=== PATIENT | female | born 1975 | race African-American/Black ===

== ENCOUNTER 2021-02-22 06:33 | Emergency (ER) | payer MEDICAID, OTHER ==
[~2021-02-22] VITALS: Ht 160 cm; Wt 108.9 kg
[2021-02-22] MEDS ORDERED: FLUORESCEIN SOD OPTH TEST STRIP RIGHTEYE ONE (07:30)
[2021-02-22] MEDS ORDERED: TETRACAINE HCL 0.5% OPTH(EYE) SOLN 4ML RIGHTEYE ONE (07:30)
[2021-02-22 07:34] VITALS: BP 142/72
== END 2021-02-22 08:20 | disposition home or self-care (01) ==
LOC: ER 06:33
DX: S05.01XA Injury of conjunctiva and corneal abrasion without foreign body, right eye, initial encounter (principal); F17.210 Nicotine dependence, cigarettes, uncomplicated; X58.XXXA Exposure to other specified factors, initial encounter; Y93.89 Activity, other specified; Y92.89 Other specified places as the place of occurrence of the external cause; Y99.8 Other external cause status
CPT/HCPCS: 70450; 70480